=== PATIENT | female | born 1995 | race Caucasian/White ===

== ENCOUNTER 2021-04-16 21:03 | Emergency (ER) | payer OTHER, SELFPAY ==
[2021-04-16 21:50] VITALS: BP 118/73; PULSE 118; RESP 15; TEMP 36.7; O2SAT 99
--- NOTE | 2021-04-16 21:54 | ECG_ITS ---
Measurements Intervals [place] Rate: 95 P: 77 FL: 136 QRS: 105 QRSD: 106 T: 54 QT: 336 QTc: 423 Interpretive Statements SINUS RHYTHM WITH SINUS ARRHYTHMIA LEFT ATRIAL ENLARGEMENT RIGHT AXIS DEVIATION INCOMPLETE RIGHT BUNDLE BRANCH BLOCK BORDERLINE ECG Electronically Signed On 04-17-2021 7:22:13 CDT by Tonny Rosas D.O.
[2021-04-16 22:05] LABS: Basophils Percent Auto 0.2 % (0.2-1.2); Eosinophils Percent Auto 0.2 % (0-4.4); Hematocrit 41.9 % (37.0-47.0); Hemoglobin 13.5 g/dL (12.0-15.0); Immature Granulocyte Absolute 0.04 K/mm3 (0.00-0.031); Immature Granulocyte Percent A 0.3 % (0-0.5); Lymphocytes Percent Auto 13.1 % (18.3-44.2); Mean Corpuscular HGB Conc 32.2 g/dl (32-36); Mean Corpuscular Hemoglobin 29.3 pg (26-34); Mean Corpuscular Volume 91.1 fl (80-100); Mean Platelet Volume 9.6 fl (7.4-10.4); Monocytes Absolute Auto 0.8 K/mm3 (0.1-0.6); Monocytes Percent Auto 5.6 % (2.6-8.5); Neutrophils Absolute Auto 11.1 K/mm3 (1.3-6.7); Neutrophils Percent Auto 80.6 % (45.5-73.1); Platelet Count Result 348 k/mm3 (150-375); Red Cell Distribution Width 14.8 % (11.5-14.5); White Blood Count 13.8 K/mm3 (4.5-10.0)
[2021-04-16 22:18] LABS: Anion Gap 12 mmol/L (8-16); Blood Urea Nitrogen 10 mg/dL (7-17); Calcium 9.9 mg/dL (8.4-10.2); Carbon Dioxide 26 mmol/L (22-30); Chloride 103 mmol/L (98-107); Estimated CRCL calculation 109 ml/min; Estimated Glomerular Filt Rate > 60; Glucose 99 mg/dL (65-105); Potassium 3.7 mmol/L (3.4-5.0); Sodium 141 mmol/L (137-145)
[2021-04-17] VITALS (23 sets, daily range): BP systolic 105–134; BP diastolic 52–93; PULSE 68–119; RESP 11–21; O2SAT 96–100
[2021-04-17] MEDS: SODIUM CHLORIDE 0.9% IV 1,000 ML 999 ML IV CONT ×2 (00:53→02:13)
[2021-04-17] MEDS: KETOROLAC 30 MG/ML VIAL (*BKC) IV PUSH (00:53)
--- NOTE | 2021-04-17 01:24 | PC.NURSE ---
States is feeling a little bit better. Pain decreased somewhat. Amb to bathroom for clean catch urine
--- NOTE | 2021-04-17 01:32 | ED.GENADULT ---
HPI - General Adult General Chief complaint: Dizziness Stated complaint: dizzy, back pain Time Seen by Provider: 04/17/21 00:29 History of Present Illness HPI narrative: Patient 25-year-old female presents emergency department with chief complaint of near syncope. Patient reports that she started having back pain and pain in her left sciatic nerve and then also has been feeling, lightheaded whenever she stands up patient states that she got very lightheaded felt as though she was going to pass out but did not actually pass out the patient reports she became diaphoretic patient denies chest pain denies shortness of breath. Related Data Home Medications Medication Instructions Recorded Confirmed cyclobenzaprine mg 04/17/21 tramadol mg 04/17/21 Allergies Allergy/AdvReac Type Severity Reaction Status Date / Time No Known Allergies Allergy Verified 04/17/21 00:38 Review of Systems Review of Systems: Narrative: A 10 system review of systems was completed on the patient and is negative except for what is stated in the HPI. Nursing and ancillary documentation was reviewed. PMFSH Comments Patient has history of sciatica Patient denies illicit drug use, patient works at [employer] [facility] Course Vital Signs Vital signs: Vital Signs Temperature 36.7 C 04/16/21 21:50 Pulse Rate 118 H 04/16/21 21:50 Respiratory Rate 15 04/16/21 21:50 Blood Pressure 118/73 04/16/21 21:50 Pulse Oximetry 99 04/16/21 21:50 Temperature 36.7 C 04/16/21 21:50 Pulse Rate 92 04/17/21 01:39 Respiratory Rate 15 04/17/21 01:01 Blood Pressure 134/81 04/17/21 01:39 Pulse Oximetry 99 04/17/21 01:01 Medical Decision Making Vital Signs Vital Signs: Vital Signs Temperature 36.7 C 04/16/21 21:50 Pulse Rate 118 H 04/16/21 21:50 Respiratory Rate 15 04/16/21 21:50 Blood Pressure 118/73 04/16/21 21:50 Pulse Oximetry 99 04/16/21 21:50 Temperature 36.7 C 04/16/21 21:50 Pulse Rate 92 04/17/21 01:39 Respiratory Rate 15 04/17/21 01:01 Blood Pressure 134/81 04/17/21 01:39 Pulse Oximetry 99 04/17/21 01:01 Lab Data Result diagrams: 04/16/21 22:00 04/16/21 22:00 Labs: Lab Results 04/16/21 04/16/21 04/17/21 Range/Units 22:00 22:00 01:53 WBC 13.8 H (4.5-10.0) K/mm3 RBC 4.60 (4.2-5.4) M/mm3 Hgb 13.5 (12.0-15.0) g/dL Hct 41.9 (37.0-47.0) % MCV 91.1 (80-100) fl MCH 29.3 (26-34) pg MCHC 32.2 (32-36) g/dl RDW 14.8 H (11.5-14.5) % Plt Count 348 (150-375) k/mm3 MPV 9.6 (7.4-10.4) fl Immature Gran % (Auto) 0.3 (0-0.5) % Neut % (Auto) 80.6 H (45.5-73.1) % Lymph % (Auto) 13.1 L (18.3-44.2) % [place] % (Auto) 5.6 (2.6-8.5) % Eos % (Auto) 0.2 (0-4.4) % Baso % (Auto) 0.2 (0.2-1.2) % Lymph # (Auto) 1.80 (0.9-3.2) K/mm3 [place] # (Auto) 0.8 H (0.1-0.6) K/mm3 Eos # (Auto) 0.0 (0-0.3) K/mm3 Baso # (Auto) 0.0 (0.0-0.1) K/mm3 Abs Immat Gran (auto) 0.04 H (0.00-0.031) K/mm3 Absolute Neuts (auto) 11.1 H (1.3-6.7) K/mm3 Absolute Nucleated RBC 0.0 (0.0-0.012) K/mm3 Nucleated RBC % 0.0 (0.0-0.2) % Sodium 141 (137-145) mmol/L Potassium 3.7 (3.4-5.0) mmol/L Chloride 103 (98-107) mmol/L Carbon Dioxide 26 (22-30) mmol/L Anion Gap 12 (8-16) mmol/L BUN 10 (7-17) mg/dL Creatinine 0.80 (0.7-1.0) mg/dL Estim Creat Clear Calc 109 ml/min Estimated GFR > 60 (59 - ) Glucose 99 (65-105) mg/dL Calcium 9.9 (8.4-10.2) mg/dL Urine Color Yellow (Yellow) Urine Appearance Cloudy H (Clear) Urine pH 7.0 (5.0-9.0) Ur Specific [place] 1.025 (1.001-1.035) Urine Protein 1+ H (Negative) mg/dL Urine Glucose (UA) Negative (Negative) mg/dL Urine Ketones 1+ H (Negative) mg/dL Ur Blood (Man) Negative (Negative) Urine Nitrate Negative (Negative) Urine Bilirubin Negative (Ne
[2021-04-17 02:07] LABS: Add Urine Microscopic? YES; Appearance Urine Cloudy (Clear); Bacteria Urine 2+ /hpf; Bilirubin Urine Negative (Negative); Blood Urine Negative (Negative); Color Urine Yellow (Yellow); Glucose Urine UA Negative (Negative); Ketones Urine 1+ mg/dL (Negative); Leukocyte Esterase Ur Trace LEU/UL (Negative); Mucus Urine Heavy /lpf; Nitrate Urine Negative (Negative); Protein Urine 1+ mg/dL (Negative); Specific Grav Ur 1.025 (1.001-1.035); Squamous Epithelial Cell Urine Moderate /hpf (Few)
== END 2021-04-17 04:00 | disposition home or self-care (01) ==
PROVIDERS: Emergency Provider Emergency Medicine; PCP Family Medicine
DX: I95.1 Orthostatic hypotension (principal); M54.32 Sciatica, left side; N30.00 Acute cystitis without hematuria; I45.10 Unspecified right bundle-branch block
CPT/HCPCS: 36415; 80048; 81001; 85025; 93005; 96361; 96374; 99284; J1885; J7030

== ENCOUNTER 2021-11-25 11:45 | Emergency (ER) | payer OTHER, SELFPAY ==
[2021-11-25 11:53] VITALS: BP 126/71; PULSE 104; RESP 16; TEMP 36.7; O2SAT 99
--- NOTE | 2021-11-25 13:05 | ED.URI ---
HPI - URI/Sore Throat General Chief Complaint: Upper Respiratory Infection Stated Complaint: sore throat Time Seen by Provider: 11/25/21 12:42 Source: patient and RN notes reviewed Mode of arrival: ambulatory Limitations: no limitations History of Present Illness HPI Narrative: Patient presents today complaining of sore throat, body aches, fever up to 100.4 since yesterday with a 5 to 6-day history of headache. Denies cough, congestion, rhinorrhea, or any additional symptoms. She currently rates her pain 4/10 and has been taking Tylenol with some relief. MD elicited complaint: fever and sore throat Related Data Home Medications Medication Instructions Recorded Confirmed buspirone mg 11/25/21 Allergies Allergy/AdvReac Type Severity Reaction Status Date / Time No Known Allergies Allergy Verified 04/17/21 00:38 Review of Systems Review of Systems: CONSTITUTIONAL: Denies chills, or sweats.+ Body aches, fever EYES: Denies visual changes, redness, or discharge. ENT: Denies rhinorrhea, congestion, or otalgia.+ Sore throat CARDIOVASCULAR: Denies chest pain, palpitations, or edema. RESPIRATORY: Denies cough or dyspnea. GASTROINTESTINAL: Denies abdominal pain, nausea, vomiting, or diarrhea. GENITOURINARY: Denies dysuria or hematuria. SKIN: Denies rash, itching, or wounds. MUSCULOSKELETAL: Denies back pain, joint pain, or myalgia. NEUROLOGIC: Denies numbness, tingling, or weakness.+ Headache PSYCH: Denies depression or anxiety. PMFSH Comments At time of signature, I have reviewed and agree with nursing past medical, surgical, social and family history unless otherwise noted. Please see nursing chart for further information. There is no relevant family history pertinent to the presenting complaint Exam Narrative: GENERAL: Mildly ill-appearing, well-nourished, and in no acute distress. HEAD: Normocephalic, atraumatic. EYES: EOMI. No redness or drainage. Conjunctivae normal. ENT: Mucous membranes pink and moist. Nares clear. No rhinorrhea. TMs normal bilaterally. Throat normal. Uvula midline. NECK: Normal AROM. Supple. No lymphadenopathy. CHEST: No respiratory distress. Clear to auscultation. HEART: Regular rate and rhythm. No murmur appreciated. Normal peripheral pulses. EXTREMITIES: Normal range of motion. No edema. SKIN: Warm, dry, no rash. Capillary refill normal. Normal skin turgor. NEURO: No focal deficits. Alert and oriented x3. Gait steady. PSYCH: Normal affect. No signs of depression or anxiety. Course Course Level of Care: Express Care Visit Vital Signs Vital signs: Vital Signs Temperature 98.1 F 11/25/21 11:53 Pulse Rate 104 H 11/25/21 11:53 Respiratory Rate 16 11/25/21 11:53 Blood Pressure 126/71 11/25/21 11:53 Pulse Oximetry 99 11/25/21 11:53 Temperature 98.1 F 11/25/21 11:53 Pulse Rate 104 H 11/25/21 11:53 Respiratory Rate 16 11/25/21 11:53 Blood Pressure 126/71 11/25/21 11:53 Pulse Oximetry 99 11/25/21 11:53 Reviewed. Pt has been instructed to follow up with her PCP regarding her elevated blood pressure today. MDM - URI/Sore Throat Differential Diagnosis Differential diagnosis: Likely upper respiratory infection, sinusitis, viral infection and other (COVID-19, strep throat) Lab Data Attestation: I reviewed the patient's lab results. Labs: Lab Results 11/25/21 Range/Units 12:35 POC SARS CoV-2 Ag Negative (Negative) Strep Screen Presumptive Negative *(Reference Range: Negative)* Critical Care Time Critical Care Time Critical Care Time: No Discharge Plan Discharge Clinical Impression: Viral syndrome Patient Disposition: Home, Self-Care Condition: Stable Instructions: Viral Syndrome (ED) Additional Instructions: Your rapid COVID-19 test and rapid strep test are negative today. You have been swabbed for COVID 19 PCR and will be notified of the results by tel
[2021-11-26 21:55] LABS: SARS-CoV-2 RNA PCR Negative
== END 2021-11-25 13:23 | disposition home or self-care (01) ==
PROVIDERS: Emergency Provider Nurse Practitioner; PCP Family Medicine
DX: B34.9 Viral infection, unspecified (principal); Z20.822 Contact with and (suspected) exposure to COVID-19
CPT/HCPCS: 87081; 87426; 87880; 99213; C9803; G0463; U0003; U0005

== ENCOUNTER 2022-09-14 17:32 | Outpatient (CLI) | payer OTHER, SELFPAY | END 2022-09-14 17:33 | disposition home or self-care (01) | LOC: ANHLAB 17:40 | PROVIDERS: PCP Family Medicine | DX: Z34.01 Encounter for supervision of normal first pregnancy, first trimester (principal) | CPT/HCPCS: 87086; 87491; 87591 ==

== ENCOUNTER 2023-01-05 06:37 | Outpatient (CLI) | payer OTHER, SELFPAY ==
[2023-01-05 08:20] LABS: Hematocrit 32.4 % (37.0-47.0); Hemoglobin 10.2 g/dL (12.0-15.0); Mean Corpuscular HGB Conc 31.5 g/dl (32-36); Mean Corpuscular Hemoglobin 31.2 pg (26-34); Mean Corpuscular Volume 99.1 fl (80-100); Mean Platelet Volume 9.8 fl (7.4-10.4); Platelet Count Result 310 k/mm3 (150-375); Red Blood Count 3.27 M/mm3 (4.2-5.4); Red Cell Distribution Width 14.7 % (11.5-14.5); White Blood Count 12.4 K/mm3 (4.5-10.0)
[2023-01-05 08:21] LABS: Appearance Urine Clear (Clear); Bacteria Urine 1+ /hpf; Bilirubin Urine Negative (Negative); Blood Urine Negative (Negative); Color Urine Yellow (Yellow); Glucose Urine UA Negative (Negative); Ketones Urine Negative (Negative); Leukocyte Esterase Ur Trace LEU/UL (Negative); Nitrate Urine Negative (Negative); Protein Urine Negative (Negative); RBC Urine 0-2 /hpf (0-2); Squamous Epithelial Cell Urine Few /hpf (Few); Urobilinogen Urine 0.2 mg/dL (<2.0); pH Urine 6.5 (5.0-9.0)
[2023-01-05 08:27] LABS: Glucose 1 Hour PP 50gm Dose 118 mg/dL
[2023-01-05 08:28] LABS: Add Urine Microscopic? YES
== END 2023-01-05 06:38 | disposition home or self-care (01) ==
PROVIDERS: PCP Family Medicine; Visit Provider Obstetrics & Gynecology
DX: Z34.02 Encounter for supervision of normal first pregnancy, second trimester (principal)
CPT/HCPCS: 36415; 81001; 82947; 85027; 87086; 87088; 87147; 87491; 87591

== ENCOUNTER 2024-03-09 15:27 | Emergency (ER) | payer OTHER, SELFPAY ==
--- NOTE | 2024-03-09 15:31 | ED.URI ---
HPI - URI/Sore Throat General Chief Complaint: Upper Respiratory Infection Stated Complaint: sore throat,fever,chills,sinus pressure Time Seen by Provider: 03/09/24 15:31 Source: patient Mode of arrival: ambulatory Limitations: no limitations History of Present Illness HPI Narrative: Nayeli is a 28-year-old female patient presenting to the clinic today with complaints of sore throat, fever, chills, and sinus pressure x2 weeks. She reports highest fever was 101. MD elicited complaint: fever, sore throat, nasal congestion and other (Chills) Related Data Home Medications Medication Instructions Recorded Confirmed No Home Medications 03/09/24 03/09/24 Allergies Allergy/AdvReac Type Severity Reaction Status Date / Time No Known Allergies Allergy Verified 08/17/23 12:30 Review of Systems Review of Systems: Pertinent positives per HPI. Patient denies any rash, headache, visual changes, dizziness, shortness of breath, chest pain, palpitations, nausea, vomiting, diarrhea, constipation, abdominal pain, or any urinary issues. PMFSH Comments At the time of my signature, I reviewed and agree with the nursing past medical, surgical, social, and family history. There is no relevant family history pertinent to the patient complaint. Exam Narrative: General: Well-developed, well nourished, in no apparent distress Head: Normocephalic, atraumatic Eyes: Pupils equally round and reactive to light bilaterally, EOM intact, sclera and conjunctive clear, no discharge, lids normal Ears: TMs intact and clear, ear canals clear, no drainage, grossly hearing normal. Nose: Nares patent, yellow nasal discharge, moderate inflammation, maxillary and frontal sinus tenderness. Mouth: Oral pharynx red without lesions or masses, good dentition, MMM. Neck: Supple, trachea midline, no enlargement of anterior or posterior cervical nodes, no thyroid masses or goiter palpable. Cardio: Regular rate and rhythm, s1 and s2 normal, no murmur appreciated. Resp: Clear to auscultation bilaterally, no rhonchi, rales, wheezing or rubs Course Course Emergency Course: Portions of this record may have been created with voice recognition software. Level of Care: Express Care Visit Vital Signs Vital signs: Vital Signs Temperature 37.8 C H 03/09/24 15:37 Pulse Rate 115 H 03/09/24 15:37 Respiratory Rate 16 03/09/24 15:37 Blood Pressure 120/65 03/09/24 15:37 Pulse Oximetry 99 03/09/24 15:37 Oxygen Delivery Room Air 03/09/24 15:37 Temperature 37.8 C H 03/09/24 15:37 Pulse Rate 115 H 03/09/24 15:37 Respiratory Rate 16 03/09/24 15:37 Blood Pressure 120/65 03/09/24 15:37 Pulse Oximetry 99 03/09/24 15:37 Oxygen Delivery Room Air 03/09/24 15:37 Vital signs reviewed MDM - URI/Sore Throat MDM Narrative Medical decision making narrative: At the time of visit patient is resting comfortably on the exam table. Patient appears to be nontoxic. Labs: Strep test was completed and negative in the clinic today. Plan: I suspect patient has acute bacterial rhinosinusitis. Prescription for Augmentin and prednisone was sent to the pharmacy. Supportive measures were discussed with the patient and they voiced understanding discharge instructions and agrees to treatment plan. Return precautions reviewed Differential Diagnosis Differential diagnosis: Likely upper respiratory infection, otitis media, sinusitis, viral infection, bronchitis, influenza, pharyngitis and other (COVID) Lab Data Labs: Strep Screen Presumptive Negative *(Reference Range: Negative)* Discharge Plan Discharge Clinical Impression: Acute bacterial rhinosinusitis Patient Disposition: Home, Self-Care Condition: Stable Instructions: Antibiotic Form, Rhinosinusitis (ED) Additional Instructions: Strep test is negative in the clinic today. We will send for culture Take
[2024-03-09 15:37] VITALS: BP 120/65; PULSE 115; RESP 16; TEMP 37.8; O2SAT 99
== END 2024-03-09 16:00 | disposition home or self-care (01) ==
PROVIDERS: Emergency Provider Nurse Practitioner Family; PCP Family Medicine
DX: J01.90 Acute sinusitis, unspecified (principal)
CPT/HCPCS: 87081; 87880; 99213; G0463